=== PATIENT | male | born 1975 ===

== ENCOUNTER → 2017-09-24 15:31 | Outpatient (CLI) | payer SELFPAY ==
[2017-09-28 02:36] LABS: API SURVEY SYPHILIS SEROL. REACTIVE (NONREACTIVE)
[2017-09-28 02:37] LABS: API SURVEY SYPHILIS SEROL. NONREACTIVE (NONREACTIVE); API SURVEY SYPHILIS SEROL. REACTIVE (NONREACTIVE)
[2017-10-03 09:34] LABS: API SURVEY SYPHILIS SEROL. REACTIVE (NONREACTIVE)
[2017-10-03 09:35] LABS: API SURVEY SYPHILIS SEROL. NONREACTIVE (NONREACTIVE)
== END ==
PROVIDERS: Visit Provider Pathology Anatomic Pathology & Clinical Pathology
DX: Z00.00 Encounter for general adult medical examination without abnormal findings (principal)